=== PATIENT | male | born 1980 | race American Indian/Alaskan Native ===

== ENCOUNTER 2016-08-04 00:50 | Emergency (ER) | payer SELFPAY ==
[2016-08-04] MEDS ORDERED: CATAPRES ONE (01:10)
[2016-08-04 01:12] VITALS: BP 189/139
[2016-08-04] MEDS ORDERED: CATAPRES PO ONE (01:17)
== END 2016-08-04 01:30 | disposition left against medical advice (07) ==
LOC: ED 00:50
DX: R05 Cough (principal); M79.1 Myalgia; Z53.21 Procedure and treatment not carried out due to patient leaving prior to being seen by health care provider